=== PATIENT | male | born 1980 | race Caucasian/White ===

== ENCOUNTER 2016-12-29 14:56 | Emergency (ER) | payer MEDICAID, OTHER ==
[2016-12-29 14:56] VITALS: BMI 27.9
[2016-12-29] MEDS ORDERED: Lidocaine 1%/Epinephrine 1:100000 30 ml vial INJ STA (15:19)
[2016-12-29] MEDS ORDERED: Lidocaine 2% w Epi 1:100,000 Inj IJ ONE (15:23)
--- NOTE | 2016-12-29 15:56 | C.PDOC ---
Time Seen by Provider: 12/29/16 15:06 Chief Complaint (Nursing): Abnormal Skin Integrity History Per: Patient Onset/Duration Of Symptoms: Days Ago (3), Abscess Current Symptoms Are (Timing): Still Present Location Of Injury: Left: Arm (Axilla) Quality Of Symptoms: Painful, Swollen Severity: Moderate Additional History Per: Prior Records Past Medical History Reviewed: Historical Data, Nursing Documentation, Vital Signs Vital Signs: Last Vital Signs Temp 98 F 12/29/16 15:00 Pulse 88 12/29/16 15:00 Resp 20 12/29/16 15:00 BP 129/79 12/29/16 15:00 Pulse Ox 96 12/29/16 15:00 - Medical History PMH: Arthritis, Sexually Transmitted Disease (Herpes) Other PMH: Hidradenitis Suppurativa Family History: States: Unknown Family Hx - Social History Hx Tobacco Use: Yes Hx Alcohol Use: No Hx Substance Use: Yes - Immunization History Hx Tetanus Toxoid Vaccination: Yes Hx Influenza Vaccination: No Hx Pneumococcal Vaccination: No Review Of Systems Except As Marked, All Systems Reviewed And Found Negative. Constitutional: Negative for: Fever Cardiovascular: Negative for: Chest Pain Respiratory: Negative for: Shortness of Breath Gastrointestinal: Negative for: Vomiting, Abdominal Pain Musculoskeletal: Negative for: Neck Pain Neurological: Negative for: Weakness, Numbness, Seizures, Altered Mental Status Physical Exam - Physical Exam Appears: Non-toxic, No Acute Distress Skin: Warm, Dry, Other (Abscess on left axilla, fluctuant.) Head: Atraumatic Eye(s): bilateral: PERRL, EOMI Neck: Normal ROM, Supple Extremity: Normal ROM Pulses: Left Radial: Normal Neurological/Psych: Oriented x3, Normal Motor, Normal Sensation ED Course And Treatment O2 Sat by Pulse Oximetry: 96 Pulse Ox Interpretation: Normal Disposition Counseled Patient/Family Regarding: Diagnosis, Need For Followup, Rx Given - Disposition Referrals: Fady Carey MD [Staff Provider] - Disposition: HOME/ ROUTINE Disposition Time: 15:58 Condition: STABLE Additional Instructions: Follow up 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 Packing removal and wound check in 2-3 days. Return to the ER if you develop fever, worsening of symptoms or if you have any other concerns. Prescriptions: Clindamycin [Cleocin] 300 mg PO BID #20 cap Instructions: Abscess Incision and Drainage (ED) - Clinical Impression Clinical Impression: Hidradenitis suppurativa of left axilla - Incision & Drainage Of Abscess Anesthesia: Lidocaine 2%, With Epi Prep Used: Betadine Procedure: Incised W/Scalpel Blade#: (11), Drained Pus, Probed To Break Up Loculations, Packed W/Gauze, Cultures Obtained And Sent To Lab
[2016-12-29] MEDS ORDERED: Naproxen 550 mg Tab PO STA (16:06)
[2016-12-29] MEDS ORDERED: Naproxen 550 mg Tab PO ONE (16:08)
[2016-12-29 16:10] VITALS: BP 124/80; PULSE 68; RESP 16; TEMP 97.5; O2SAT 95
== END 2016-12-29 16:10 | disposition home or self-care (01) ==
LOC: C.ER 14:56
DX: L73.2 Hidradenitis suppurativa (principal)

== ENCOUNTER 2016-12-31 08:07 | Emergency (ER) | payer MEDICAID, OTHER ==
[2016-12-31 08:07] VITALS: BMI 27.9
[2016-12-31 08:25] VITALS: BP 119/77; PULSE 77; RESP 18; TEMP 98.2; O2SAT 97
--- NOTE | 2016-12-31 08:52 | C.PDOC ---
History Of Present Illness 36-year-old male presents to the emergency department for wound check. Patient was seen in ED several days ago, is s/p I&D of abscess at left axilla. Patient comes in today for packing removal and wound check. He states his pain has improved and the area has become less swollen. Patient has states he has been compliant with Clindamycin. Patient denies fever, discharge, or worsening pain. Time Seen by Provider: 12/31/16 08:25 Chief Complaint (Nursing): Wound Check History Per: Patient History/Exam Limitations: no limitations Onset/Duration Of Symptoms: Days Ago Current Symptoms Are (Timing): Better Quality Of Symptoms: Painful Severity: Mild Past Medical History Reviewed: Historical Data, Nursing Documentation, Vital Signs Vital Signs: Last Vital Signs Temp 98.2 F 12/31/16 08:24 Pulse 77 12/31/16 08:24 Resp 18 12/31/16 08:24 BP 119/77 12/31/16 08:24 Pulse Ox 97 12/31/16 11:40 - Medical History PMH: Arthritis, Sexually Transmitted Disease (Herpes) Family History: States: No Known Family Hx - Social History Hx Tobacco Use: Yes Hx Alcohol Use: No Hx Substance Use: Yes - Immunization History Hx Tetanus Toxoid Vaccination: Yes Hx Influenza Vaccination: No Hx Pneumococcal Vaccination: No Review Of Systems Except As Marked, All Systems Reviewed And Found Negative. Constitutional: Negative for: Fever, Chills Gastrointestinal: Negative for: Nausea, Vomiting Skin: Negative for: Rash Physical Exam - Physical Exam Appears: Well, Non-toxic, No Acute Distress Skin: Warm, Dry, Other (Left axilla: approx 1cm open wound with surrounding area (2cm) of induration. No fluctuance, erythema or discharge. Packing in place.) Oral Mucosa: Moist Cardiovascular: Rhythm Regular Respiratory: Normal Breath Sounds, No Rales, No Rhonchi, No Wheezing Neurological/Psych: Oriented x3 ED Course And Treatment O2 Sat by Pulse Oximetry: 97 (RA) Pulse Ox Interpretation: Normal Progress Note: Prior Visits. Notes and records from previous visits were reviewed. Patient evaluated in ED on 12/29/16 and had I&D of abscess to left axilla. Patient treated with PO Motrin for pain, and abscess packing removed by me. Patient tolerated well. Area redressed with gauze by me. Patient instructed to continue antibiotics until finished, and to follow up with PMD/ clinic in 1-2 days. He understands he should return to ED if area becomes more red, swollen, painful, or he develops fever. Reevaluation Time: 09:00 Reassessment Condition: Improved Disposition Counseled Patient/Family Regarding: Studies Performed, Diagnosis, Need For Followup - Disposition Referrals: Fady Carey MD [Staff Provider] - Disposition: HOME/ ROUTINE Disposition Time: 09:00 Condition: STABLE Additional Instructions: FOLLOW UP WITH YOUR DOCTOR IN 1-2 DAYS FINISH ANTIBIOTICS DIRECTED RETURN TO ER IF YOU HAVE ANY CONCERNING SYMPTOMS Instructions: Acute Wound Care (ED) Forms: Work Excuse Print Language: KOREAN - POA Present On Arrival: None - Clinical Impression Clinical Impression: Wound check, abscess - Scribe Statement The provider has reviewed the documentation as recorded by the Carmen Pitt All medical record entries made by the Mahnazibdiana were at my direction and personally dictated by me. I have reviewed the chart and agree that the record accurately reflects my personal performance of the history, physical exam, medical decision making, and the department course for this patient. I have also personally directed, reviewed, and agree with the discharge instructions and disposition.
== END 2016-12-31 09:00 | disposition home or self-care (01) ==
LOC: C.ER 08:07
DX: Z48.00 Encounter for change or removal of nonsurgical wound dressing (principal)

== ENCOUNTER 2018-02-12 22:59 | Emergency (ER) | payer SELFPAY ==
[2018-02-12 23:00] VITALS: BMI 27.9
[2018-02-12 23:07] VITALS: BP 127/80; PULSE 81; TEMP 98.4; O2SAT 99
--- NOTE | 2018-02-12 23:35 | C.PDOC ---
History Of Present Illness 37 yo male come in for evaluation of intermittent Right lower toothache for past 4 days. Pt sts, pain is localized, worse with chewing. Otherwise, pt denies fever, chills, headache, dizziness, earache or discharges, neck pain, drooling, trismus, dysphagia, dyspnea, SOB, cough, wheezing, denies recent dental work. Ambulate to Ed for evaluation, not in any apparent distress. Time Seen by Provider: 02/12/18 23:23 Chief Complaint (Nursing): Dental Pain History Per: Patient Past Medical History Reviewed: Historical Data, Nursing Documentation, Vital Signs Vital Signs: Last Vital Signs Temp 98.4 F 02/12/18 23:02 Pulse 81 02/12/18 23:02 Resp 20 02/12/18 23:39 BP 127/80 02/12/18 23:02 Pulse Ox 99 02/12/18 23:35 - Medical History PMH: Arthritis, Sexually Transmitted Disease (Herpes) Family History: States: Unknown Family Hx - Social History Hx Tobacco Use: Yes Hx Alcohol Use: Yes Hx Substance Use: Yes - Immunization History Hx Tetanus Toxoid Vaccination: Yes Hx Influenza Vaccination: No Hx Pneumococcal Vaccination: No Review Of Systems Except As Marked, All Systems Reviewed And Found Negative. Constitutional: Negative for: Fever, Chills ENT: Positive for: Mouth Pain. Negative for: Ear Discharge, Nose Discharge, Throat Swelling Cardiovascular: Negative for: Chest Pain Respiratory: Negative for: Cough, Shortness of Breath, Wheezing Gastrointestinal: Negative for: Nausea, Vomiting Skin: Negative for: Rash Neurological: Negative for: Altered Mental Status, Headache, Dizziness Physical Exam - Physical Exam Appears: Well, Non-toxic, No Acute Distress Skin: Normal Color, Warm, No Rash Head: Normacephalic Eye(s): bilateral: PERRL Ear(s): Bilateral: Normal Nose: No Flaring, No Discharge Oral Mucosa: Moist, No Drooling, No Trismus Tongue: Normal Appearing Lips: Normal Appearing Teeth: Caries (29-31), Tender To Palpation (29-31) Gingiva: Erythema (29-31), Swelling (29-31), Tender (30), No Abscess Throat: No Erythema, No Exudate, No Drooling, Other (uvula midline, no edema.) Neck: Trachea Midline, Supple Cardiovascular: Rhythm Regular, No Murmur, No JVD Respiratory: No Decreased Breath Sounds, No Accessory Muscle Use, No Stridor, No Wheezing Extremity: Normal ROM, No Pedal Edema, No Swelling Neurological/Psych: Oriented x3, Normal Speech ED Course And Treatment O2 Sat by Pulse Oximetry: 99 Pulse Ox Interpretation: Normal Progress Note: On re-evaluation, pt is afebrile, hemodynamicaly stable. Non- toxic. Tolerate Po well in ED. PulsEOx 99 % RA. ENT: exam c/w acute gingivitis around #29-31 associated with tender to percusison over #30, mild gingival edema, no evidence of tooth abscess. No drooling or trismus, no facial edema or erythema. uvual midline, no edema. Neck: Supple, (-) meningeal sign. Lungs: CTA B/L, BS equal B/L. Neuorlogicaly intact. Pt has clinical findings c /w gingivitis r/o early #30 tooth abscess. Parent advised. ref. to F/u with Dentist in 2-3 days f0r re-eavl. return to ED if any worsening or new changes. Disposition Counseled Patient/Family Regarding: Diagnosis, Need For Followup, Rx Given - Disposition Referrals: [facility] [Provider Group] [facility] [Provider Group] Disposition: HOME/ ROUTINE Disposition Time: 23:33 Condition: STABLE Additional Instructions: Warm salty water tooth baths 2-3 times daily for 5 minutes Take medication as prescribed Follow up with Dentist in 2-3 days for re-evaluation. return if any new changes. Prescriptions: Penicillin VK [Penicillin VK Tab] 500 mg PO Q6 #28 tab traMADol [Ultram] 50 mg PO TID #10 tab Instructions: Tooth Abscess (DC) Forms: [employer] (Thai) - Clinical Impression Clinical Impression: Gingivitis, Dental caries
[2018-02-12 23:40] VITALS: RESP 20
== END 2018-02-12 23:39 | disposition home or self-care (01) ==
LOC: SUPCPDRO 22:59 → C.ER 22:59
DX: K05.10 Chronic gingivitis, plaque induced (principal); K02.9 Dental caries, unspecified; Z72.0 Tobacco use